=== PATIENT | female | born 1945 | race Native Hawaiian/Other Pacific Islander ===

== ENCOUNTER 2019-05-14 17:25 | Emergency (ER) | payer OTHER ==
[~2019-05-14] VITALS: Ht 157.5 cm; Wt 90.7 kg
[2019-05-14 18:35] LABS: PLATELET COUNT 196 K/uL (152-353)
[2019-05-14 18:48] LABS: POTASSIUM 4.3 mmol/L (3.6-5.2); SODIUM 140 mmol/L (136-145)
[2019-05-14 19:02] LABS: PARTIAL THROMBOPLASTIN TIME 19.2 SECONDS (24.5-33.6)
[2019-05-14 21:30] VITALS: BP 177/83; TEMP 98.1
== END 2019-05-14 21:30 | disposition home or self-care (01) ==
LOC: ED 17:25
PROVIDERS: Hospitalist
DX: R07.89 Other chest pain (principal); I49.8 Other specified cardiac arrhythmias
CPT/HCPCS: 36415; 80053; 82550; 82553; 83880; 84484; 85027; 85379; 85610; 85730; 93005; 96372; 96374; 96375; 96376; 99284; J1650; J1885; J2270; J2405; Q9963